=== PATIENT | male | born 1975 | race Caucasian/White ===

== ENCOUNTER 2017-04-16 18:45 | Emergency (ER) | payer MEDICAID ==
[~2017-04-16] VITALS: Ht 175.3 cm; Wt 89.1 kg
[2017-04-16 18:52] VITALS: BP 152/96
[2017-04-16] MEDS ORDERED: NACL 0.9% 1,000 ML IV SCH (18:56)
[2017-04-16 19:26] LABS: BASOPHILS # (AUTO) 0.2 K/uL (0.00-0.22); BASOPHILS % (AUTO) 1.8 % (0.0-2.0); EOSINOPHILS # (AUTO) 0.2 K/uL (0-0.4); EOSINOPHILS % (AUTO) 2.5 % (0.0-4.0); HEMATOCRIT 43.6 % (36-52); HEMOGLOBIN 14.6 g/dL (12.0-18.0); LYMPHOCYTES # (AUTO) 1.5 K/uL (2.0-11.5); MEAN CORPUSCULAR HEMOGLOBIN 31 pg (27-31); MEAN CORPUSCULAR HGB CONC 34 g/dL (33-37); MEAN CORPUSCULAR VOLUME 92 fL (80-94); MONOCYTES # (AUTO) 0.9 K/uL (0.8-1.0); MONOCYTES % (AUTO) 10.1 % (1.7-9.3); NEUTROPHILS # (AUTO) 5.8 K/uL (1.8-7.7); NEUTROPHILS % (AUTO) 68.6 % (42.2-75.2); PLATELET COUNT (AUTO) 199 K/uL (140-450); RED BLOOD CELL COUNT(AUTO) 4.75 MIL/uL (4.20-6.10); RED CELL DISTRIBUTION WIDTH 13.3 % (11.6-13.7); WHITE BLOOD COUNT (AUTO) 8.6 K/uL (4.8-10.8)
[2017-04-16 19:38] LABS: ANION GAP 13.6 (8-16); CALCIUM 8.5 mg/dL (8.5-10.1); CARBON DIOXIDE 26.8 mmol/L (21-32); CREATININE 0.9 mg/dL (0.7-1.3); POTASSIUM 4.4 mmol/L (3.5-5.1)
[2017-04-16 19:47] LABS: ALBUMIN 3.5 g/dL (3.4-5.0); TOTAL BILIRUBIN 0.6 mg/dL (0.0-1.0); TOTAL PROTEIN, SERUM 7.1 g/dL (6.4-8.2)
[2017-04-16] MEDS ORDERED: metroNIDAZOLE 500 MG/NS PREMIX 100 ML IV ONE (19:55)
[2017-04-16] MEDS ORDERED: HYDROmorphone 1 MG/ML AMP IVP ONE ×4 (19:55→21:40)
[2017-04-16] MEDS ORDERED: ONDANSETRON 4 MG/2 ML VIAL IVP ONE (19:55)
[2017-04-16] MEDS ORDERED: methylPREDNISolone SS 125 MG in WATER STERILE 2 ML IV ONE (19:55)
[2017-04-16] MEDS ORDERED: sulfaSALAzine 500 MG TAB PO SCH (19:55)
[2017-04-16] MEDS ORDERED: LEVOFLOXACIN 500 MG TAB PO ONE (20:55)
[2017-04-16 21:56] VITALS: BP 144/89
== END 2017-04-16 21:56 | disposition home or self-care (01) ==
LOC: MED 18:45
DX: K52.89 Other specified noninfective gastroenteritis and colitis (principal); I10 Essential (primary) hypertension; Z88.0 Allergy status to penicillin
CPT/HCPCS: 36415; 80053; 83690; 85025; 96365; 96375; 96376; 99284; J1170; J2405; J2930; J3490; J7030

== ENCOUNTER 2017-04-26 20:44 | Emergency (ER) | payer MEDICAID ==
[~2017-04-26] VITALS: Ht 175.3 cm; Wt 90.7 kg
[2017-04-26 20:52] VITALS: BP 163/100
--- NOTE | 2017-04-26 21:03 | NUR ---
[facility] DRAWING LABS
--- NOTE | 2017-04-26 21:04 | NUR ---
PT TAKEN TO BED 6
--- NOTE | 2017-04-26 21:09 | NUR ---
41 Y M BIB FAMILY C/O FLARE UP FROM CROHNS AND COLITIS X 1 WEEK. PT STATES HE HAS N/V/D. PT STATES 2 DAYS AGO PT HAS BLOODY DIARRHEA. PT STATES PAIN IS SUPRAPUBIC, INTERMITTENT SPASM. PT DENIES ANY SOB/CP AT THE MOMENT. PT BREATHING IS UNLABORED AND CLEAR BILAT. PT AAOX4. SKIN IS INTACT, PINK DRY AND ELASTIC. PT AMBULATED TO ER BED WITH STEADY GAIT. VSS;
--- NOTE | 2017-04-26 21:15 | NUR ---
PT REFUSE LAB DRAW FROM [facility]; ER MD DR FARMER MADE AWARE
--- NOTE | 2017-04-26 21:25 | NUR ---
Dr. Sanchez evaluating patient at bedside.
[2017-04-26] MEDS ORDERED: DICYCLOMINE 20 MG/2 ML VIAL IM ONE (21:35)
[2017-04-26] MEDS ORDERED: methylPREDNISolone SS 125 MG in WATER STERILE 2 ML IV ONE (21:35)
[2017-04-26] MEDS ORDERED: ONDANSETRON 4 MG/2 ML VIAL IVP ONE ×2 (21:35→22:45)
[2017-04-26] MEDS ORDERED: HYDROmorphone 1 MG/ML AMP IVP ONE ×2 (21:35→22:45)
[2017-04-26] MEDS ORDERED: NACL 0.9% 1,000 ML IV ONE (21:35)
--- NOTE | 2017-04-26 22:26 | NUR ---
IV removed, catheter intact and site benign. Applied folded 4x4 gauze and tape to stop bleeding.
[2017-04-26 22:28] LABS: BASOPHILS # (AUTO) 0.3 K/uL (0.00-0.22); BASOPHILS % (AUTO) 2.7 % (0.0-2.0); EOSINOPHILS # (AUTO) 0.1 K/uL (0-0.4); EOSINOPHILS % (AUTO) 0.9 % (0.0-4.0); HEMATOCRIT 41.2 % (36-52); HEMOGLOBIN 13.9 g/dL (12.0-18.0); LYMPHOCYTES # (AUTO) 2.2 K/uL (2.0-11.5); LYMPHOCYTES % (AUTO) 21.1 % (20.5-51.1); MEAN CORPUSCULAR HEMOGLOBIN 31 pg (27-31); MEAN CORPUSCULAR HGB CONC 34 g/dL (33-37); MEAN CORPUSCULAR VOLUME 91 fL (80-94); MONOCYTES # (AUTO) 1.4 K/uL (0.8-1.0); MONOCYTES % (AUTO) 13.2 % (1.7-9.3); NEUTROPHILS # (AUTO) 6.5 K/uL (1.8-7.7); NEUTROPHILS % (AUTO) 62.1 % (42.2-75.2); PLATELET COUNT (AUTO) 202 K/uL (140-450); RED BLOOD CELL COUNT(AUTO) 4.52 MIL/uL (4.20-6.10); RED CELL DISTRIBUTION WIDTH 12.7 % (11.6-13.7); WHITE BLOOD COUNT (AUTO) 10.5 K/uL (4.8-10.8)
[2017-04-26 22:32] LABS: APPEARANCE,URINE CLEAR (CLEAR); BILIRUBIN,URINE NEGATIVE (NEGATIVE); BLOOD, URINE NEGATIVE (NEGATIVE); COLOR,URINE YELLOW (YELLOW); LEUKOCYTE ESTERASE ,URINE NEGATIVE (NEGATIVE); NITRITE, URINE NEGATIVE (NEGATIVE); PH,URINE 5.5 (5.0-9.0); UGLUCOSE NEGATIVE (NEGATIVE)
[2017-04-26 22:36] LABS: BARBITURATE, URINE NEG. ng/ml (NEG <=200); BENZODIAZEPINE, URINE NEG. ng/mL (NEG <=200); CANNABINOID, URINE NEG. ng/mL (NEG <=50); COCAINE, URINE NEG. ng/mL (NEG <=300); OPIATE, URINE NEG. ng/mL (NEG <=2000); PHENCYCLIDINE SCREEN,URINE NEG. ng/mL (NEG <=25)
[2017-04-26 22:38] LABS: ANION GAP 12.2 (8-16); CARBON DIOXIDE 29.1 mmol/L (21-32); POTASSIUM 3.3 mmol/L (3.5-5.1)
[2017-04-26 22:44] LABS: ALBUMIN 3.6 g/dL (3.4-5.0); TOTAL BILIRUBIN 0.3 mg/dL (0.0-1.0)
[2017-04-26 22:46] LABS: PROTHROMBIN TIME 10.3 secs (10.8-13.4)
[2017-04-26 22:50] LABS: RBC,URINE 0-5 (RARE) /HPF (0-5); WBC,URINE 0-5 (RARE) /HPF (0-5)
[2017-04-26] MEDS ORDERED: POTASSIUM CHLORIDE 10 MEQ TABER PO ONE (22:55)
--- NOTE | 2017-04-26 23:10 | NUR ---
IV removed, catheter intact and site benign. Applied folded 4x4 gauze and tape to stop bleeding.
[2017-04-26 23:12] VITALS: BP 147/93
--- NOTE | 2017-04-26 23:12 | NUR ---
Patient does not wish to proceed with medical care recommended by DR FARMER. Patient given information related to possible complications, up to and including , which could occur as a result of leaving hospital at this time. Patient verbalizes understanding of risks involved leaving against medical advice. Patient has signed AMA form.
--- NOTE | 2017-04-26 23:13 | NUR ---
Patient discharged with v/s stable. Written and verbal after care instructions given and explained. Patient alert, oriented and verbalized understanding of instructions. Ambulatory with steady gait. All questions addressed prior to discharge. ID band removed. Patient advised to follow up with PMD. Rx of ZOFRAN ODT 4MG, AND BENTYL 20MG given. Patient educated on indication of medication including possible reaction and side effects. Opportunity to ask questions provided and answered.
[2017-04-26] MEDS ORDERED: ACET1TAB97 PO (23:16)
[2017-04-26] MEDS ORDERED: TRAM50TA94 PO (23:16)
[2017-04-26] MEDS ORDERED: ACET-2863 PO (23:16)
[2017-04-26] MEDS ORDERED: OXYC40TE66 PO (23:16)
[2017-04-26] MEDS ORDERED: BEN10 PO (23:17)
[2017-04-26] MEDS ORDERED: ONDA4ODT1 PO (23:17)
== END 2017-04-26 23:13 | disposition left against medical advice (07) ==
LOC: MED 20:44
DX: R10.30 Lower abdominal pain, unspecified (principal); R11.10 Vomiting, unspecified; K92.1 Melena; Z88.6 Allergy status to analgesic agent; Z88.0 Allergy status to penicillin; I10 Essential (primary) hypertension; Z87.891 Personal history of nicotine dependence
CPT/HCPCS: 36415; 80053; 80305; 81001; 85025; 85610; 96361; 96372; 96374; 96375; 96376; 99285; J0500; J1170; J2405; J2930

== ENCOUNTER 2018-01-13 14:39 | Emergency (ER) | payer MEDICAID ==
[~2018-01-13] VITALS: Ht 175.3 cm; Wt 86.2 kg
[2018-01-13 14:39] VITALS: BP 144/94
[~2018-01-13 14:39] MED LIST: ACET-2863 PO; ACET1TAB97 PO; BEN10 PO; ONDA4ODT1 PO; OXYC40TE66 PO; TRAM50TA1 PO
--- NOTE | 2018-01-13 14:46 | NUR ---
PT AMBULATED TO BED 5
--- NOTE | 2018-01-13 15:03 | NUR ---
Note undone in EDM - 01/13/18 at 1529 by [email or web address] PT COMES TO ED C/O ABD PAIN FOR 2 TWOS, STATES "I AM HAVING A COLITIS CHRONS DISEASE FLARE UP." PT WITH H/O CHRONS AND COLITIS. REPORTS NAUSEA, AND DIARRHEA FOR 2 DAYS. DENIES VOMITTING. PT GUARDING LOWER ABD. PT PLACED ON ALL MONIOTRS, VSS. DENEIES SOB, DIZZINESS OR CP. PENDING MD MALONEY
--- NOTE | 2018-01-13 15:03 | NUR ---
PT COMES TO ED C/O ABD PAIN FOR 2 TWO DAYS, STATES "I AM HAVING A COLITIS AND CHRONS DISEASE FLARE UP." PT WITH H/O CHRONS AND COLITIS. REPORTS NAUSEA, AND DIARRHEA FOR 2 DAYS. DENIES VOMITTING. PT GUARDING LOWER ABD. PT PLACED ON ALL MONIOTRS, VSS. DENEIES SOB, DIZZINESS OR CP. PENDING MD MALONEY
[2018-01-13] MEDS ORDERED: NACL 0.9% 1,000 ML IV ONE (15:25)
[2018-01-13] MEDS ORDERED: fentaNYL 0.05 MG/ML VIAL IVP ONE ×2 (15:35→17:00)
[2018-01-13] MEDS ORDERED: ONDANSETRON 4 MG/2 ML VIAL IVP ONE (15:35)
[2018-01-13] MEDS ORDERED: methylPREDNISolone SS 125 MG/2 ML VIAL IVP ONE (15:35)
[2018-01-13 15:44] LABS: BASOPHILS % (AUTO) 0.5 % (0.0-2.0); EOSINOPHILS % (AUTO) 0.2 % (0.0-4.0); HEMATOCRIT 41.9 % (36-52); HEMOGLOBIN 13.8 g/dL (12.0-18.0); LYMPHOCYTES # (AUTO) 1.9 K/uL (2.0-11.5); LYMPHOCYTES % (AUTO) 20.6 % (20.5-51.1); MEAN CORPUSCULAR HEMOGLOBIN 30 pg (27-31); MEAN CORPUSCULAR HGB CONC 33 g/dL (33-37); MEAN CORPUSCULAR VOLUME 89.4 fL (80-94); MONOCYTES # (AUTO) 1.3 K/uL (0.8-1.0); MONOCYTES % (AUTO) 14.6 % (1.7-9.3); NEUTROPHILS # (AUTO) 5.9 K/uL (1.8-7.7); NEUTROPHILS % (AUTO) 64.1 % (42.2-75.2); PLATELET COUNT (AUTO) 244 K/uL (140-450); RED BLOOD CELL COUNT(AUTO) 4.68 MIL/uL (4.20-6.10); RED CELL DISTRIBUTION WIDTH 16.7 % (11.6-13.7); WHITE BLOOD COUNT (AUTO) 9.3 K/uL (4.8-10.8)
[2018-01-13 15:57] LABS: ANION GAP 12.7 (8-16); CARBON DIOXIDE 29.3 mmol/L (21-32)
[2018-01-13 16:00] LABS: PROTHROMBIN TIME 9.9 secs (10.8-13.4)
[2018-01-13 16:04] LABS: ALBUMIN 3.4 g/dL (3.4-5.0); TOTAL BILIRUBIN 0.3 mg/dL (0.0-1.0)
[2018-01-13 17:10] VITALS: BP 131/85
--- NOTE | 2018-01-13 17:11 | NUR ---
Patient discharged with v/s stable. Written and verbal after care instructions given and explained. Patient alert, oriented and verbalized understanding of instructions. Ambulatory with steady gait. All questions addressed prior to discharge. ID band removed. Patient advised to follow up with PMD. Rx of NORCO, PREDNISONE given. Patient educated on indication of medication including possible reaction and side effects. Opportunity to ask questions provided and answered.
== END 2018-01-13 17:11 | disposition home or self-care (01) ==
LOC: MED 14:39
DX: K52.9 Noninfective gastroenteritis and colitis, unspecified (principal); I10 Essential (primary) hypertension; Z88.8 Allergy status to other drugs, medicaments and biological substances; Z88.0 Allergy status to penicillin; Z79.899 Other long term (current) drug therapy
CPT/HCPCS: 36415; 80053; 81002; 85025; 85610; 85730; 96361; 96374; 96375; 99284; J2405; J2930; J3010; J7030

== ENCOUNTER 2018-01-24 11:26 | Emergency (ER) | payer MEDICAID ==
[~2018-01-24] VITALS: Ht 175.3 cm; Wt 89.6 kg
[2018-01-24 11:38] VITALS: BP 156/101
--- NOTE | 2018-01-24 11:42 | NUR ---
PT AMBULATED TO BED 1
--- NOTE | 2018-01-24 12:00 | NUR ---
PATIENT PRESENTS TO ED WITH COMPLAINTS OF CROHNS DISEASE FLARE UP. PATIENT STATES HE STARTED HAVING FLARE UP 3 DAYS AGO AND IS IN EXTREME PAIN, LOWER ABDOMEN AND RECTUM. SKIN IS PINK/WARM/DRY; AAOX4 WITH EVEN AND STEADY GAIT; LUNGS CLEAR BL; HR EVEN AND REGULAR; PT DENIES ANY FEVER, CP, SOB, OR COUGH AT THIS TIME; PATIENT STATES PAIN OF 10/10 AT THIS TIME; VSS; PATIENT POSITIONED FOR COMFORT; HOB ELEVATED; BEDRAILS UP X1; BED DOWN. ER MD MADE AWARE OF PT STATUS.
[2018-01-24] MEDS ORDERED: NACL 0.9% 1,000 ML IV ONE (12:53)
[2018-01-24] MEDS ORDERED: NACL 0.9% 1,000 ML IV SCH (12:53)
[2018-01-24] MEDS ORDERED: DEXAMETHASONE 10 MG/ML VIAL IVP ONE (12:55)
[2018-01-24] MEDS ORDERED: PROMETHAZINE 25 MG/ML VIAL IM ONE (12:55)
[2018-01-24] MEDS ORDERED: HYDROmorphone PFS 2 MG/ML SYR IVP ONE (12:55)
[2018-01-24] MEDS ORDERED: diphenhydrAMINE 50 MG/ML VIAL IVP ONE (12:55)
[2018-01-24] MEDS ORDERED: FAMOTIDINE 20 MG/2 ML VIAL IVP ONE (12:55)
[2018-01-24 14:02] LABS: BASOPHILS % (AUTO) 0.2 % (0.0-2.0); EOSINOPHILS # (AUTO) 0.1 K/uL (0-0.4); EOSINOPHILS % (AUTO) 0.6 % (0.0-4.0); HEMATOCRIT 40.1 % (36-52); HEMOGLOBIN 13.3 g/dL (12.0-18.0); LYMPHOCYTES # (AUTO) 2.3 K/uL (2.0-11.5); LYMPHOCYTES % (AUTO) 26.2 % (20.5-51.1); MEAN CORPUSCULAR HEMOGLOBIN 30 pg (27-31); MEAN CORPUSCULAR HGB CONC 33 g/dL (33-37); MEAN CORPUSCULAR VOLUME 88.9 fL (80-94); MONOCYTES # (AUTO) 1.1 K/uL (0.8-1.0); MONOCYTES % (AUTO) 12.6 % (1.7-9.3); NEUTROPHILS # (AUTO) 5.4 K/uL (1.8-7.7); NEUTROPHILS % (AUTO) 60.4 % (42.2-75.2); PLATELET COUNT (AUTO) 212 K/uL (140-450); RED BLOOD CELL COUNT(AUTO) 4.51 MIL/uL (4.20-6.10); RED CELL DISTRIBUTION WIDTH 16.9 % (11.6-13.7); WHITE BLOOD COUNT (AUTO) 8.9 K/uL (4.8-10.8)
[2018-01-24 14:14] LABS: APPEARANCE,URINE CLEAR (CLEAR); BILIRUBIN,URINE NEGATIVE (NEGATIVE); BLOOD, URINE NEGATIVE (NEGATIVE); COLOR,URINE YELLOW (YELLOW); LEUKOCYTE ESTERASE ,URINE NEGATIVE (NEGATIVE); NITRITE, URINE NEGATIVE (NEGATIVE); PH,URINE 5.5 (5.0-9.0); UGLUCOSE NEGATIVE (NEGATIVE)
[2018-01-24 14:16] LABS: BARBITURATE, URINE NEG. ng/ml (NEG <=200); BENZODIAZEPINE, URINE NEG. ng/mL (NEG <=200); CANNABINOID, URINE NEG. ng/mL (NEG <=50); COCAINE, URINE NEG. ng/mL (NEG <=300); OPIATE, URINE POS. ng/mL (NEG <=2000); PHENCYCLIDINE SCREEN,URINE NEG. ng/mL (NEG <=25)
[2018-01-24 14:18] LABS: ANION GAP 9.7 (8-16); CARBON DIOXIDE 28.9 mmol/L (21-32); CREATININE 0.8 mg/dL (0.7-1.3); POTASSIUM 3.6 mmol/L (3.5-5.1)
[2018-01-24 14:24] LABS: ALBUMIN 3.1 g/dL (3.4-5.0); TOTAL BILIRUBIN 0.2 mg/dL (0.0-1.0)
[2018-01-24 14:40] VITALS: BP 137/85
--- NOTE | 2018-01-24 14:40 | NUR ---
Patient discharged with PAIN. Written and verbal after care instructions given and explained. Patient verbalized understanding. Ambulatory with steady gait. All questions addressed prior to discharge. Advised to follow up with PMD.
== END 2018-01-24 14:40 | disposition home or self-care (01) ==
LOC: MED 11:26
DX: K52.9 Noninfective gastroenteritis and colitis, unspecified (principal); K50.90 Crohn's disease, unspecified, without complications; I10 Essential (primary) hypertension; Z79.899 Other long term (current) drug therapy; Z88.0 Allergy status to penicillin
CPT/HCPCS: 36415; 74176; 80053; 80305; 81003; 82150; 83690; 85025; 96361; 96374; 96375; 99285; J1100; J1170; J1200; J2550; J3490

== ENCOUNTER 2018-01-28 17:08 | Emergency (ER) | payer MEDICAID ==
[~2018-01-28] VITALS: Ht 175.3 cm; Wt 90.0 kg
[2018-01-28 17:17] VITALS: BP 165/108
== END 2018-01-28 17:30 | disposition left against medical advice (07) ==
LOC: MED 17:08
DX: R10.9 Unspecified abdominal pain (principal); Z53.21 Procedure and treatment not carried out due to patient leaving prior to being seen by health care provider

== ENCOUNTER 2018-03-03 23:02 | Emergency (ER) | payer MEDICAID ==
[~2018-03-03] VITALS: Ht 175.3 cm; Wt 90.7 kg
[2018-03-03 23:06] VITALS: BP 150/100
--- NOTE | 2018-03-03 23:10 | NUR ---
TO LOBBY A/W BED, MARION CHAVIS NOTED.
--- NOTE | 2018-03-03 23:31 | NUR ---
PT AMBULATED TO ER BED 03
--- NOTE | 2018-03-03 23:31 | NUR ---
42/M CAME IN W C /O LOWER ABD PAIN, INTERMITTENT, CRAMPING X 2 DAYS. REPORTS N/V/D WITH BRIGHT RED BLOOD IN STOOLS. ABD SOFT, ROUND, +TENDERNESS DIFFUSED, BS ACTIVE X 4. PMH: CHRONS, ULCERATIVE COLITIS
[2018-03-04] MEDS ORDERED: NACL 0.9% 1,000 ML IV SCH (00:08)
[2018-03-04] MEDS ORDERED: HYDROmorphone PFS 2 MG/ML SYR IM ONE (00:10)
[2018-03-04] MEDS ORDERED: ONDANSETRON 4 MG/2 ML VIAL IVP ONE (00:10)
[2018-03-04 00:26] LABS: APPEARANCE,URINE CLEAR (CLEAR); BILIRUBIN,URINE NEGATIVE (NEGATIVE); BLOOD, URINE NEGATIVE (NEGATIVE); COLOR,URINE YELLOW (YELLOW); LEUKOCYTE ESTERASE ,URINE NEGATIVE (NEGATIVE); NITRITE, URINE NEGATIVE (NEGATIVE); UGLUCOSE 3+ (NEGATIVE)
[2018-03-04 00:28] LABS: BASOPHILS # (AUTO) 0.1 K/uL (0.00-0.22); BASOPHILS % (AUTO) 0.4 % (0.0-2.0); EOSINOPHILS % (AUTO) 0.1 % (0.0-4.0); HEMATOCRIT 43.8 % (36-52); HEMOGLOBIN 14.3 g/dL (12.0-18.0); LYMPHOCYTES # (AUTO) 0.2 K/uL (2.0-11.5); MEAN CORPUSCULAR HEMOGLOBIN 30 pg (27-31); MEAN CORPUSCULAR HGB CONC 33 g/dL (33-37); MEAN CORPUSCULAR VOLUME 92.5 fL (80-94); MONOCYTES % (AUTO) 0.2 % (1.7-9.3); NEUTROPHILS # (AUTO) 15.5 K/uL (1.8-7.7); NEUTROPHILS % (AUTO) 98.1 % (42.2-75.2); PLATELET COUNT (AUTO) 246 K/uL (140-450); RED BLOOD CELL COUNT(AUTO) 4.73 MIL/uL (4.20-6.10); RED CELL DISTRIBUTION WIDTH 15.2 % (11.6-13.7)
[2018-03-04 00:35] LABS: RBC,URINE NONE SEEN /HPF (0-5); WBC,URINE 0-5 (RARE) /HPF (0-5)
[2018-03-04 00:36] LABS: ANION GAP 16.3 (8-16); CARBON DIOXIDE 22.1 mmol/L (21-32); POTASSIUM 4.4 mmol/L (3.5-5.1)
[2018-03-04 00:41] LABS: LYMPHOCYTES % (AUTO) 1.2 % (20.5-51.1); WHITE BLOOD COUNT (AUTO) 15.8 K/uL (4.8-10.8)
[2018-03-04 00:42] LABS: ALBUMIN 3.5 g/dL (3.4-5.0); TOTAL BILIRUBIN 0.3 mg/dL (0.0-1.0)
[2018-03-04] MEDS ORDERED: HYDROcodone/APAP 10/325 MG 1 TAB TAB PO STA (01:59)
[2018-03-04] MEDS ORDERED: methylPREDNISolone SS 125 MG in WATER STERILE 2 ML IV STA (01:59)
[2018-03-04 02:37] VITALS: BP 110/76
--- NOTE | 2018-03-04 02:37 | NUR ---
Patient discharged with v/s stable. Written and verbal after care instructions given and explained. Patient alert, oriented and verbalized understanding of instructions. Ambulatory with steady gait. All questions addressed prior to discharge. ID band removed. Patient advised to follow up with PMD. Rx of REGLAN, NORCO, ZOFRAN given. Patient educated on indication of medication including possible reaction and side effects. Opportunity to ask questions provided and answered. IV removed, catheter intact and site benign. Applied folded 4x4 gauze and tape to stop bleeding.
== END 2018-03-04 02:37 | disposition home or self-care (01) ==
LOC: MED 23:02
DX: R11.10 Vomiting, unspecified (principal); R19.7 Diarrhea, unspecified; I10 Essential (primary) hypertension; Z87.19 Personal history of other diseases of the digestive system; Z88.0 Allergy status to penicillin; Z88.8 Allergy status to other drugs, medicaments and biological substances
CPT/HCPCS: 36415; 80053; 81001; 83690; 85025; 96361; 96372; 96374; 99284; J1170; J2405; J2930; J7030

== ENCOUNTER 2018-05-26 19:48 | Emergency (ER) | payer MEDICAID ==
[~2018-05-26] VITALS: Ht 175.3 cm; Wt 90.7 kg
[2018-05-26 20:03] VITALS: BP 140/87
--- NOTE | 2018-05-26 20:06 | NUR ---
TO LOBBY A/W BED, MARION CHAVIS NOTED
[2018-05-26 21:14] LABS: MEAN CORPUSCULAR HEMOGLOBIN 30 pg (27-31); MEAN CORPUSCULAR HGB CONC 33 g/dL (33-37); MEAN CORPUSCULAR VOLUME 91.3 fL (80-94); PLATELET COUNT (AUTO) 253 K/uL (140-450); RED BLOOD CELL COUNT(AUTO) 5.04 MIL/uL (4.20-6.10); RED CELL DISTRIBUTION WIDTH 13.4 % (11.6-13.7); WHITE BLOOD COUNT (AUTO) 16.2 K/uL (4.8-10.8)
[2018-05-26 21:15] LABS: BASOPHILS % (AUTO) 1.9 % (0.0-2.0); EOSINOPHILS % (AUTO) 0.3 % (0.0-4.0); LYMPHOCYTES % (AUTO) 3.7 % (20.5-51.1); MONOCYTES % (AUTO) 1.6 % (1.7-9.3); NEUTROPHILS % (AUTO) 92.5 % (42.2-75.2)
[2018-05-26 21:16] LABS: ANION GAP 13.6 (8-16); CARBON DIOXIDE 25.5 mmol/L (21-32); CREATININE 0.9 mg/dL (0.7-1.3); POTASSIUM 4.1 mmol/L (3.5-5.1)
[2018-05-26 21:19] LABS: ALBUMIN 3.7 g/dL (3.4-5.0); TOTAL BILIRUBIN 0.3 mg/dL (0.0-1.0)
--- NOTE | 2018-05-26 22:00 | NUR ---
PT PRESENTED ER WITH C/O PAIN TO THE ABDOMEN DUE TO POSSIBLE CROHN'S EXACERBATION PER PT. PT IS A/O X 4. PT STATED HE NEEDS MEDICATION TO HELP HIS PAIN. HE STATES HIS MEDICATIONS AT HOME IS NOT GIVING HIM RELIEF. BOWL SOUNDS ACTIVE N ALL 4 Q. PT STATES HE HAS ALLERGIES TO PENICILLIN AND NSAIDS. MEDICAL HISTORY IS CHROHNS DISEASE, CHOLITIS, AND HTN. PT HAS N/V; SKIN IS PINK/WARM/DRY; EVEN AND STEADY GAIT; LUNGS CLEAR BL; HR EVEN AND REGULAR; PATIENT STATES PAIN OF 10/10 AT THIS TIME; VSS; PATIENT POSITIONED FOR COMFORT; HOB ELEVATED; BEDRAILS UP X2; BED DOWN. ER MD MADE AWARE OF PT STATUS.
--- NOTE | 2018-05-26 22:00 | NUR ---
PT AMBULATED TO BED #3
[2018-05-26] MEDS ORDERED: MORPHINE SULFATE 4 MG/ML SYR IVP ONE ×2 (22:05→22:15)
[2018-05-26] MEDS ORDERED: NACL 0.9% 1,000 ML IV ONE (22:05)
[2018-05-26] MEDS ORDERED: ONDANSETRON 4 MG/2 ML VIAL IVP ONE (22:15)
[2018-05-26] MEDS ORDERED: methylPREDNISolone SS 125 MG/2 ML VIAL IVP ONE (22:15)
[2018-05-26] MEDS ORDERED: diphenhydrAMINE 50 MG/ML VIAL IVP ONE (23:25)
[2018-05-27 00:15] VITALS: BP 152/86
--- NOTE | 2018-05-27 00:15 | NUR ---
Patient discharged with v/s stable. Written and verbal after care instructions given and explained. Patient alert, oriented and verbalized understanding of instructions. Ambulatory with steady gait. All questions addressed prior to discharge. ID band removed. Patient advised to follow up with PMD. Rx of Cipro, Flagyl, Prednisone, Norvasc, and [place] given. Patient educated on indication of medication including possible reaction and side effects. Opportunity to ask questions provided and answered.
== END 2018-05-27 00:15 | disposition home or self-care (01) ==
LOC: MED 19:48
DX: K50.90 Crohn's disease, unspecified, without complications (principal); I10 Essential (primary) hypertension; F17.200 Nicotine dependence, unspecified, uncomplicated; Z88.0 Allergy status to penicillin; Z88.8 Allergy status to other drugs, medicaments and biological substances; Z79.899 Other long term (current) drug therapy; Z90.49 Acquired absence of other specified parts of digestive tract
CPT/HCPCS: 36415; 80053; 81002; 83690; 85025; 96361; 96374; 96375; 96376; 99284; J1200; J2270; J2405; J2930; J7030

== ENCOUNTER 2018-06-07 18:55 | Emergency (ER) | payer MEDICAID ==
[~2018-06-07] VITALS: Ht 175.3 cm; Wt 92.1 kg
[2018-06-07 19:04] VITALS: BP 140/90
[2018-06-07] MEDS: methylPREDNISolone SS 125 MG/2 ML VIAL IVP ONE (20:33)
[2018-06-07] MEDS: MORPHINE SULFATE 4 MG/ML SYR IVP ONE (20:34)
[2018-06-07] MEDS: ONDANSETRON 4 MG/2 ML VIAL IVP ONE (20:34)
[2018-06-07] MEDS: NACL 0.9% 1,000 ML IV ONE (20:40)
[2018-06-07 21:15] VITALS: BP 124/86
== END 2018-06-07 21:15 | disposition home or self-care (01) ==
LOC: MED 18:55
DX: K50.90 Crohn's disease, unspecified, without complications (principal); R11.2 Nausea with vomiting, unspecified; F17.200 Nicotine dependence, unspecified, uncomplicated; Z88.0 Allergy status to penicillin; Z88.8 Allergy status to other drugs, medicaments and biological substances; Z79.899 Other long term (current) drug therapy; Z90.49 Acquired absence of other specified parts of digestive tract
CPT/HCPCS: 81002; 96361; 96374; 96375; 99284; J2270; J2405; J2930; J7030

== ENCOUNTER 2018-06-15 16:43 | Emergency (ER) | payer MEDICAID ==
[~2018-06-15] VITALS: Ht 175.3 cm; Wt 90.7 kg
[2018-06-15 16:53] VITALS: BP 128/94
--- NOTE | 2018-06-15 16:59 | NUR ---
PATIENT AMBULATED TO BED 6
--- NOTE | 2018-06-15 17:05 | NUR ---
42YO M TO ER W/C/O CROHN'S DISEASE, CHOLITIS FLARE UP. ABD PAIN 8/10, LOWER ABD TENDERNESS, BLOATING , HYPOACTIVE BS, ABD SOFT, BLOOD IN STOOL YEASTERDAY PER PT. +N/V/D X3 DAYS. ER MD MADE AWARE WILL CONTINUE TO MONITOR, PT POSITIONED FOR COMFORT.
[2018-06-15 17:24] VITALS: BP 128/94
--- NOTE | 2018-06-15 17:24 | NUR ---
DR ZAYAS AT BEDSIDE FOR PT EVALUATION
[2018-06-15] MEDS ORDERED: fentaNYL 0.05 MG/ML VIAL IM ONE (17:35)
[2018-06-15] MEDS ORDERED: ONDANSETRON 4 MG ODT PO ONE (17:35)
[2018-06-15 18:01] LABS: HEMATOCRIT 40.8 % (36-52); HEMOGLOBIN 13.4 g/dL (12.0-18.0); MEAN CORPUSCULAR HEMOGLOBIN 29 pg (27-31); MEAN CORPUSCULAR HGB CONC 33 g/dL (33-37); MEAN CORPUSCULAR VOLUME 88.9 fL (80-94); PLATELET COUNT (AUTO) 252 K/uL (140-450); RED BLOOD CELL COUNT(AUTO) 4.59 MIL/uL (4.20-6.10); RED CELL DISTRIBUTION WIDTH 14.6 % (11.6-13.7)
--- NOTE | 2018-06-15 18:15 | NUR ---
PATIENT ELOPED FROM FACILITY. DISCHARGE INSTRUCTIONS NOT GIVEN TO PATIENT. DR. yap NOTIFIED.
[2018-06-15 18:24] LABS: CARBON DIOXIDE 24.2 mmol/L (21-32); LYMPHOCYTES % (MANUAL) 4 % (20-46); MONOCYTES % (MANUAL) 2 % (5-12); POTASSIUM 4.2 mmol/L (3.5-5.1)
[2018-06-15 18:28] LABS: ALBUMIN 3.2 g/dL (3.4-5.0); TOTAL BILIRUBIN 0.3 mg/dL (0.0-1.0)
== END 2018-06-15 18:15 | disposition left against medical advice (07) ==
LOC: MED 16:43
DX: R10.30 Lower abdominal pain, unspecified (principal); F11.10 Opioid abuse, uncomplicated; K50.90 Crohn's disease, unspecified, without complications; Z88.6 Allergy status to analgesic agent; Z88.0 Allergy status to penicillin; Z79.899 Other long term (current) drug therapy; Z79.1 Long term (current) use of non-steroidal anti-inflammatories (NSAID)
CPT/HCPCS: 36415; 80053; 83605; 85025; 87040; 96372; 99284; J3010; S0119

== ENCOUNTER 2018-07-04 10:38 | Emergency (ER) | payer MEDICAID ==
[~2018-07-04] VITALS: Ht 175.3 cm; Wt 90.7 kg
[~2018-07-04 10:38] MED LIST changes: -ACET-2863 PO; +HYDR-5123 PO
--- NOTE | 2018-07-04 10:42 | NUR ---
WENT IN TO ACCESS PATIENT BUT HE LWBS.
[2018-07-04 10:47] VITALS: BP 132/84
== END 2018-07-04 10:42 | disposition left against medical advice (07) ==
LOC: MED 10:38
DX: R19.5 Other fecal abnormalities (principal); Z53.21 Procedure and treatment not carried out due to patient leaving prior to being seen by health care provider